=== PATIENT | male | born 1970 | race Two or more races ===

== ENCOUNTER → 2017-04-03 | Outpatient (CLI) | payer OTHER | LOC: CIMAGING 07:46 | PROVIDERS: ATTEND Internal Medicine Interventional Cardiology | DX: Z13.6 Encounter for screening for cardiovascular disorders (principal); I70.91 Generalized atherosclerosis; Z82.49 Family history of ischemic heart disease and other diseases of the circulatory system | CPT/HCPCS: 75571-PO ==